=== PATIENT | male | born 2000 | race Caucasian/White ===

== ENCOUNTER 2023-03-01 01:18 | Inpatient (IN) | payer BC, OTHER, SELFPAY ==
[2023-03-01 01:18] VITALS: BMI 23.3
[2023-03-01 01:23] VITALS: BP 146/75; PULSE 61; RESP 16; TEMP 36.6; O2SAT 98
[2023-03-01 06:00] VITALS: RESP 16
--- NOTE | 2023-03-01 09:28 | PC.NURSE ---
Refused medications this morning. Stated he didn't need them because I don't want to kill myself. I never said I wanted to kill myself. This RN then asked why he thought people had said he made suicidal statements. Patient then stated, well, I got drunk so I might've said something. I don't know. I know I said if I wanted to kill myself I could...but I don't want to.
--- NOTE | 2023-03-01 10:16 | W.PM.NPUH&PS ---
Providers/Chief Complaint Admitting Physician: Bg Costello MD Chief Complaint: 96 hour hold HPI NPU History of Present Illness Iam Fairchild is a 22 year old male who presented to the outside hospital with concerns for suicidality and access to guns intoxicated after finding out that his father committed suicide the day before. He was transferred to [facility] and was admitted to the neuropsychiatric unit for definitive treatment of those issues. He is not currently taking any psychiatric medications. He presents today reporting that his father committed suicide and that he got drunk and got out of control. He has never been psychiatrically hospitalized and has never received outpatient services. He endorses tobacco since he was 19 throughout the day, a beer or two once a week, marijuana rarely, and denies any other illicit drug use. He has never had drug and alcohol treatment, had a DUI charge that was dismissed and denies any drug and alcohol related charges. He reports that his father shot himself in the head at his grandfather?s house 2 days ago. He reports that his father went to his grandfather?s house after his stepmother gave up on him and filed for a divorce. He was going to go pick him up and reports that he told his father that he didn?t want him to do anything [address] proceedings were held on Thursday and he reports that a restraining order was filed against his father. 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 He reports that his grandfather woke up and called him on Thursday while his father slept in. His grandfather later checked on his father at around 1 PM and found him . He endorses that his father was about 50, and that his grandfather was about 80. He reports that he was at his drill 2 hours away when he received the phone call. He came home from the drill, made sure his grandfather was doing alright, and picked out his father?s clothes after the body was cleaned up. He reports that he was supposed to help his grandfather help pick out a casket yesterday morning but that they wouldn?t let him leave the hospital. He endorses that he was in his car with a loaded pistol in the center console, denies that he had to be talked out of there, and denies being suicidal. He endorses that if he wanted to commit suicide he had the opportunity as his firearm is always loaded. He reports that he carries his gun in the trunk of his car, and that he has it on him when he goes somewhere. He reports that he was at his house with his best friend when he got way too drunk. He doesn?t know where everybody came from but everyone was there asking if he was alright. He reports that he got into the route sales delivery driver?s seat of his car because nobody would leave him alone. He reports that his best friend asked him for the gun. He opened the car door, handed him the gun, and closed the door again. He endorses being very drunk and reports that the police arrived at some point but does not think he was in the car when they showed up. Psychiatric History: As above. Substance Abuse History: As above. Family History: There were no reports of mental health issues on either side of his family apart from his father. He denies addiction issues on either side of the family and reports that his father is the only suicide attempt and completion on either side of the family. Developmental History: There were no issues with or , they learned to walk and talk and met their developmental milestones on time, and denied any need for speech therapy, learning support, emotional support or special education classes. Psychosocial History: He reports his parents were together when he was born and remained together for the first couple of years. He has one older sister who is the product of the same union. His mother has 2 additional children, an older sister and an older brother. He describes his childhood as good and denies emotional, physical, or sexual abuse during his childhood. He denies CYS involvement and denies any other traumatic events. 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 He endorses being heterosexual with his longest relationship being his current marriage at almost 8 years. He has been once and has one biological daughter that is almost 2 years old. He has been in the since 2019 and it is his longest employment to date. He denies being jewish and currently lives in a house with his and daughter. Legal History: Denied Medical History: He denies any known allergies to medications. Meds NPU Home Medications Medication Instructions Recorded Confirmed Last Taken Type No Known Home Medications 03/01/23 03/01/23 Unknown History Allergies Allergy/AdvReac Type Severity Reaction Status Date / Time No Known Allergies Allergy Verified 03/01/23 01:48 Mental Status Exam MSE Comments: This is a well-developed white male in hospital scrubs with adequate grooming and eye contact. No abnormal movements except for mild psychomotor retardation. Cooperative with exam in mild to moderate distress. Speech was normal rate and volume. Mood described as good as it can be and that his goal is to go home, affect is tearful. Thought process, organized. Thought content: patient denies suicidal or homicidal ideation, denies paranoia with no delusions noted, and denies any auditory or visual hallucinations. Attention and concentration are intact and memory appeared reliable but none were formally tested. They are alert and oriented three times. Insight and judgment are limited. Impulse control is limited. Vitals/I&O/Wt Last Vital Signs Temp 97.8 F 03/01/23 01:23 Pulse 61 03/01/23 01:23 Resp 16 03/01/23 06:00 BP 146/75 03/01/23 01:23 Pulse Ox 98 03/01/23 01:23 O2 Del Method 03/01/23 01:23 Weight last 48 hrs Weight 90.718 kg Weight 80.286 kg A&P Assessment and plan (1) Alcohol use: (2) Intoxication: (3) Acute stress reaction: (4) Suicidal ideations: (5) Bereavement: Plan This is a 22 year old white male presenting after an incident where he became very drunk after his father committed suicide two days ago reporting that he has not been and is not suicidal endorsing that his goal is to go home to help plan his father?s . We discussed the risks, benefits and alternatives of hospitalization and they understood and agreed to proceed as is documented in this note. 1. Encourage individual, group and milieu therapy 2. Continue q-15 minute check for safety 3. Recommend sober living treatment at the highest level of care to which the patient is willing to commit. 4. Continue without medications at this time. Involuntary Hold Information 96 Hour Hold: 96 Hour Involuntary Admission: No Attestations NPU Medical Necessity Statement*: Inpatient hospitalization is medically necessary and the clinically appropriate intervention at this time. We will monitor medications and make changes as indicated. Patient will be in the hospital for over two midnights. Likely length of stay is 1 additional night. Coding Level of Care Code Acute Code for Chg Fwd Diagnoses Alcohol use Z78.9 Intoxication Acute stress reaction F43.0 Suicidal ideations R45.851 Bereavement Z63.4
[2023-03-01 14:00] VITALS: RESP 16
[2023-03-01 20:30] VITALS: BP 116/84; PULSE 74; RESP 16; TEMP 36.9; O2SAT 97
[2023-03-02 06:00] VITALS: BP 126/63; PULSE 65; RESP 16; TEMP 36.6; O2SAT 99
--- NOTE | 2023-03-02 10:18 | W.PM.NPUDCS ---
Diagnoses at Discharge Discharge Diagnosis (1) Alcohol use: Status: Acute (2) Intoxication: Status: Resolved (3) Acute stress reaction: Status: Acute (4) Suicidal ideations: Status: Resolved (5) Bereavement: Status: Acute Reason for Visit Reason for Visit: 96 hour hold Brief History: History of Present Illness Iam Fairchild is a 22 year old male who presented to the outside hospital with concerns for suicidality and access to guns intoxicated after finding out that his father committed suicide the day before.? He was transferred to [facility] and was admitted to the neuropsychiatric unit for definitive treatment of those issues. He is not currently taking any psychiatric medications. He presents today reporting that his father committed suicide and that he got drunk and got out of control. He has never been psychiatrically hospitalized and has never received outpatient services. He endorses tobacco since he was 19 throughout the day, a beer or two once a week, marijuana rarely, and denies any other illicit drug use. He has never had drug and alcohol treatment, had a DUI charge that was dismissed and denies any drug and alcohol related charges. He reports that his father shot himself in the head at his grandfather?s house 2 days ago. He reports that his father went to his grandfather?s house after his stepmother gave up on him and filed for a divorce. He was going to go pick him up and reports that he told his father that he didn?t want him to do anything [address] proceedings were held on Thursday and he reports that a restraining order was filed against his father. 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 He reports that his grandfather woke up and called him on Thursday while his father slept in. His grandfather later checked on his father at around 1 PM and found him . He endorses that his father was about 50, and that his grandfather was about 80. He reports that he was at his drill 2 hours away when he received the phone call. He came home from the [employer], made sure his grandfather was doing alright, and picked out his father?s clothes after the body was cleaned up. He reports that he was supposed to help his grandfather help pick out a casket yesterday morning but that they wouldn?t let him leave the hospital. He endorses that he was in his car with a loaded pistol in the center console, denies that he had to be talked out of there, and denies being suicidal. He endorses that if he wanted to commit suicide he had the opportunity as his firearm is always loaded. He reports that he carries his gun in the trunk of his car, and that he has it on him when he goes somewhere. He reports that he was at his house with his best friend when he got way too drunk. He doesn?t know where everybody came from but everyone was there asking if he was alright. He reports that he got into the p d driver?s seat of his car because nobody would leave him alone. He reports that his best friend asked him for the gun. He opened the car door, handed him the gun, and closed the door again. He endorses being very drunk and reports that the police arrived at some point but does not think he was in the car when they showed up. Psychiatric History: As above. Substance Abuse History: As above. Family History: There were no reports of mental health issues on either side of his family apart from his father. He denies addiction issues on either side of the family and reports that his father is the only suicide attempt and completion on either side of the family. Developmental History: There were no issues with or , they learned to walk and talk and met their developmental milestones on time, and denied any need for speech therapy, learning support, emotional support or special education classes. Psychosocial History: He reports his parents were together when he was born and remained together for the first couple of years. He has one older sister who is the product of the same union. His? mother has 2 additional children, an older sister and an older brother. He describes his childhood as good and denies emotional, physical, or sexual abuse during his childhood. He denies CYS involvement and denies any other traumatic events. 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 He endorses being heterosexual with his longest relationship being his current marriage at almost 8 years. He has been once and has one biological daughter that is almost 2 years old. He has been in the since 2019 and it is his longest employment to date. He denies being restoration and currently lives in a house with his and daughter. Legal History: Denied Medical History: He denies any known allergies to medications. Hospital Course Hospital Course He quickly acclimated to the individual, group and milieu therapies provided. Patient presented after acute crisis of learning of his father's suicide at his grandfather's house. He got intoxicated and while under the influence made statements that were concerning and led to him being taken to the hospital and ultimately admitted to the neuropsychiatric unit. Given his history this was clearly a stress response with no previous history of mental health challenges. Once sober he spoke very clearly and had no signs of imminent risk to harm himself or others. 1 gun was removed at the time of the incident of intoxication. Family reported/confirmed removing all other guns from the home as a acute safety measure. Also charged with the task of managing his father's affairs and arrangements. He was able to work with the treatment team to assist with outpatient resources and follow-up.? He had significant improvement during the stay and was able to contract for safety, outside the hospital prior to discharge.? At the outside hospital, patient had routine laboratory studies which were within normal limits except for few outliers.? Additionally there was a general medical evaluation which was also within normal limits and revealed no new acute processes. Discharge Summary: At the time of discharge, he denied psychosis or lethality.? Mood and anxiety were well managed.? Patient endorsed a plan to avoid all drugs of abuse and follow-up with the aftercare recommendations of the treatment team.? Patient was evaluated and deemed to be absent credible lethality, and had achieved the maximum benefit from an inpatient hospitalization, so was discharged. Involuntary Hold Information 96 Hour Hold: 96 Hour Involuntary Admission: No Mental Status Exam MSE Comments: This is a well-developed white male in hospital scrubs with adequate grooming and eye contact. No abnormal movements except for mild psychomotor retardation. Cooperative with exam in mild to moderate distress. Speech was normal rate and volume. Mood described as good as it can be, affect is congruent. Thought process, organized. Thought content: patient denies suicidal or homicidal ideation, denies paranoia with no delusions noted, and denies any auditory or visual hallucinations. Attention and concentration are intact and memory appeared reliable but none were formally tested. They are alert and oriented three times. Insight and judgment are fair. Impulse control is fair. Discharge Data Vitals: Last Vital Signs Temp 97.9 F 03/02/23 06:00 Pulse 65 03/02/23 06:00 Resp 16 03/02/23 06:00 BP 126/63 03/02/23 06:00 Pulse Ox 99 03/02/23 06:00 O2 Del Method 03/01/23 01:23 Discharge Plan Discharge Patient Disposition: Home Condition: Stable Prescriptions: No Action No Known Home Medications Discharge Orders: Discharge Order (Routine); Ordered 03/02/23 Ordered By: Bg Costello Referrals: [facility] [Other] - 1-3 days (Initial assessment needs to be done by open access Thursday thru Thursday 8am to 4pm. Please arrive within 3 days of discharge. Bring photo ID, proof of address, insurance, SS Card, and med list.) Discharge Diet: Regular Discharge Activity: Resume usual activity Patient Instructions: Alcohol Abuse, Suicide Prevention (DC), Opioid Safety Discharge Attestations NPU Time Spent in Discharge Care*: less than 30 min Specific Discharge Activities: Specific discharge activities: educating patient, discussing with piano case maker/social workers/dc planners, documenting/other paperwork and evaluating patient/reviewing data Coding Level of Care Code Acute Chg FW DC note Diagnoses Alcohol use Z78.9 Intoxication Acute stress reaction F43.0 Suicidal ideations R45.851 Bereavement Z63.4
[2023-03-02 10:23] VITALS: BP 126/63; PULSE 65; RESP 16; TEMP 36.6; O2SAT 99
== END 2023-03-02 10:58 | disposition home or self-care (01) | DRG 880 ==
PROVIDERS: Admitting Provider Psychiatry & Neurology Psychiatry; Visit Provider Psychiatry & Neurology Psychiatry
DX: F43.0 Acute stress reaction (principal); R45.851 Suicidal ideations; F10.929 Alcohol use, unspecified with intoxication, unspecified; Z63.4 Disappearance and death of family member; Z81.8 Family history of other mental and behavioral disorders
CPT/HCPCS: 97165